=== PATIENT | female | born 1960 | race Caucasian/White ===

== ENCOUNTER 2022-06-28 12:17 | Outpatient (CLI) | payer OTHER | END 2022-06-28 12:18 | disposition home or self-care (01) | LOC: CSHMAMMO 12:17 | PROVIDERS: ATTEND Family Medicine | DX: Z12.31 Encounter for screening mammogram for malignant neoplasm of breast (principal) | CPT/HCPCS: 77063; 77067 ==

== ENCOUNTER 2023-09-06 12:45 | Outpatient (CLI) | payer OTHER | END 2023-09-06 12:46 | disposition home or self-care (01) | LOC: CSHMAMMO 12:45 | PROVIDERS: ATTEND Family Medicine | DX: Z12.31 Encounter for screening mammogram for malignant neoplasm of breast (principal) | CPT/HCPCS: 77063; 77067 ==

== ENCOUNTER 2024-08-01 15:25 | Outpatient (CLI) | payer OTHER | END 2024-08-01 15:26 | disposition home or self-care (01) | LOC: CSHRAD 15:25 | PROVIDERS: ATTEND Nurse Practitioner Family | DX: R05.1 Acute cough (principal) | CPT/HCPCS: 71046 ==

== ENCOUNTER 2024-09-07 13:35 | Outpatient (CLI) | payer OTHER, MEDICARE | END 2024-09-07 13:36 | disposition home or self-care (01) | LOC: CSHMAMMO 13:35 | PROVIDERS: ATTEND Family Medicine | DX: Z12.31 Encounter for screening mammogram for malignant neoplasm of breast (principal) | CPT/HCPCS: 77063; 77067 ==